=== PATIENT | male | born 1940 | race Caucasian/White ===

== ENCOUNTER 2021-09-03 06:39 | Outpatient (CLI) | payer MEDICARE, OTHER | END 2021-09-03 23:59 | disposition home or self-care (01) | LOC: LAB 06:39 | PROVIDERS: ATTEND Dermatology MOHS-Micrographic Surgery | DX: Z01.812 Encounter for preprocedural laboratory examination (principal); Z20.822 Contact with and (suspected) exposure to COVID-19 ==

== ENCOUNTER 2021-09-06 06:45 | Day surgery (SDC) | payer MEDICARE, OTHER ==
[2021-09-06] MEDS ORDERED: CYCLOPENTOLATE 1% OPHT DROP 2 ML BOTTLE ONE (06:58)
[2021-09-06] MEDS ORDERED: TETRACAINE HCL 0.5% OPHT DROP 2 ML BOTTLE ONE ×2 (06:59→07:29)
[2021-09-06] MEDS ORDERED: KETOROLAC 0.5% OPHT DROP 3 ML BOTTLE ONE (06:59)
[2021-09-06] MEDS ORDERED: CIPROFLOXACIN 0.3% OPHT DROP 2.5 ML BOTTLE ONE (06:59)
[2021-09-06] MEDS ORDERED: PHENYLEPHRINE 2.5% OPHT DROP 2 ML BOTTLE ONE (07:00)
[2021-09-06] MEDS ORDERED: BALANCED SALT IRRIG SOLN COMB1 500 ML, EPINEPHRINE-PF 1:1000 1 MG IO ONE (07:00)
[2021-09-06] MEDS ORDERED: EPINEPHRINE 1 MG/1 ML AMP ONE (07:29)
[2021-09-06] MEDS ORDERED: NEO/POLYMYX B/DEXAME OPHT OINT 3.5 GM TUBE ONE (07:29)
[2021-09-06] MEDS ORDERED: PILOCARPINE 1% OPHT DROP 15 ML BOTTLE ONE (07:29)
[2021-09-06] MEDS ORDERED: LIDOCAINE-MPF 2% 5 ML VIAL ONE (07:29)
[2021-09-06] MEDS ORDERED: BALANCED SALT IRRIG SOLN COMB2 15 ML IRRIG.SOLN ONE (07:29)
[2021-09-06] MEDS ORDERED: TRYPAN BLUE 0.5 ML DISP.SYRIN ONE (07:29)
[2021-09-06] MEDS ORDERED: BALANCED SALT IRRIG SOLN COMB1 0 ML ONE (07:30)
[2021-09-06] MEDS ORDERED: BUPIVACAINE PF 0.5% 30 ML VIAL ONE (07:30)
[2021-09-06] MEDS ORDERED: FENTANYL CITRATE 100 MCG/2 ML AMPUL ONE (10:05)
[2021-09-06] MEDS ORDERED: MIDAZOLAM HCL 2 MG/2 ML VIAL ONE (10:05)
== END 2021-09-06 12:35 | disposition home or self-care (01) ==
LOC: DS 06:45
PROVIDERS: ATTEND Dermatology MOHS-Micrographic Surgery
DX: H25.012 Cortical age-related cataract, left eye (principal); I25.10 Atherosclerotic heart disease of native coronary artery without angina pectoris; I11.0 Hypertensive heart disease with heart failure; I50.9 Heart failure, unspecified; M19.90 Unspecified osteoarthritis, unspecified site; Z79.899 Other long term (current) drug therapy; Z98.890 Other specified postprocedural states
CPT/HCPCS: 36415; 66984; 71045; 84132; J0171 ×2; J2250; J3010; J3490 ×2; J7120; V2632; A4663; J3590; Q9968

== ENCOUNTER → 2021-09-24 | Outpatient (CLI) | payer MEDICARE, OTHER ==
[~2021-09-24] MED LIST: BALANCED SALT IRRIG SOLN COMB2 15 ML IRRIG.SOLN ONE; BUPIVACAINE PF 0.5% 30 ML VIAL ONE; EPINEPHRINE 1 MG/1 ML AMP ONE; LIDOCAINE HCL-MPF 1% 5 ML VIAL ONE; NEO/POLYMYX B/DEXAME OPHT OINT 3.5 GM TUBE ONE; TETRACAINE HCL 0.5% OPHT DROP 2 ML BOTTLE ONE
== END | disposition home or self-care (01) ==
LOC: LAB 06:55
PROVIDERS: ATTEND Dermatology MOHS-Micrographic Surgery
DX: Z01.812 Encounter for preprocedural laboratory examination (principal); Z20.822 Contact with and (suspected) exposure to COVID-19

== ENCOUNTER 2021-09-27 06:59 | Day surgery (SDC) | payer MEDICARE, OTHER ==
[2021-09-27] MEDS ORDERED: PROPOFOL 200 MG/20 ML BOTTLE IV ONE (07:00)
[2021-09-27] MEDS ORDERED: LIDOCAINE-MPF 2% 5 ML VIAL IJ ONE (07:00)
[2021-09-27] MEDS ORDERED: FENTANYL CITRATE 100 MCG/2 ML AMPUL ONE (07:24)
[2021-09-27] MEDS ORDERED: CIPROFLOXACIN 0.3% OPHT DROP 2.5 ML BOTTLE ONE ×2 (07:26→07:29)
[2021-09-27] MEDS ORDERED: KETOROLAC 0.5% OPHT DROP 3 ML BOTTLE ONE (07:26)
[2021-09-27] MEDS ORDERED: CYCLOPENTOLATE 1% OPHT DROP 2 ML BOTTLE ONE (07:26)
[2021-09-27] MEDS ORDERED: PHENYLEPHRINE 2.5% OPHT DROP 2 ML BOTTLE ONE (07:27)
[2021-09-27] MEDS ORDERED: TETRACAINE HCL 0.5% OPHT DROP 2 ML BOTTLE ONE (07:27)
[2021-09-27 08:06] LABS: HEMATOCRIT 41.5 % (36.7-47.1); MEAN CORPUSCULAR HEMOGLOBIN 29.6 uug (23.8-33.4); MEAN CORPUSCULAR VOLUME 89.8 fL (73.0-96.2); PLATELET COUNT (AUTO) 189 K/uL (152-348)
[2021-09-27 08:13] LABS: *BILIRUBIN,URIN NEGATIVE (NEGATIVE); *CLARITY,URINE CLEAR (CLEAR); *COLOR,URINE YELLOW (YELLOW); *KETONES,URINE NEGATIVE (NEGATIVE); *UROBILINOGEN,URINE 0.2 E.U./dl (NORMAL); LEUKOCYTE ESTERASE ,URINE NEGATIVE (NEGATIVE); NITRITE, URINE NEGATIVE (NEGATIVE); UGLUCOSE NEGATIVE (NEGATIVE)
[2021-09-27 08:20] LABS: CARBON DIOXIDE 31 mmol/L (21-32); CHLORIDE 100 mmol/L (98-107); CREATININE 1.4 mg/dL (0.6-1.3); GLUCOSE 127 mg/dL (74-106); POTASSIUM 4.4 mmol/L (3.5-5.1); UREA NITROGEN, BLOOD 25 mg/dL (7-18)
[2021-09-27 08:25] LABS: *BLOOD, URINE TRACE (NEGATIVE)
[2021-09-27] MEDS ORDERED: PILOCARPINE 1% OPHT DROP 15 ML BOTTLE ONE (09:44)
[2021-09-27] MEDS ORDERED: BALANCED SALT IRRIG SOLN COMB1 500 ML, EPINEPHRINE-PF 1:1000 0.5 MG IO ONE ×2 (11:00)
[2021-09-27 14:39] LABS: BACTERIA,URINE NONE SEEN /HPF (NONE SEEN); SQUAMOUS EPITHELIAL CELL,UR NONE SEEN /HPF (NONE SEEN); WBC,URINE 0-3 /HPF (0-3)
== END 2021-09-27 11:35 | disposition home or self-care (01) ==
LOC: DS 06:59
PROVIDERS: ATTEND Dermatology MOHS-Micrographic Surgery
DX: H25.89 Other age-related cataract (principal); I25.10 Atherosclerotic heart disease of native coronary artery without angina pectoris; I10 Essential (primary) hypertension; M19.90 Unspecified osteoarthritis, unspecified site; Z79.899 Other long term (current) drug therapy; Z98.890 Other specified postprocedural states
CPT/HCPCS: 36415; 85025; 85730; A4217; A4663; J0171; J3010; J3490; J3590; J7120; V2632